=== PATIENT | female | born 1970 | race Two or more races ===

== ENCOUNTER 2018-06-14 10:02 | Emergency (ER) | payer MEDICAID ==
[~2018-06-14] VITALS: Ht 149.9 cm; Wt 74.8 kg
[2018-06-14 10:25] VITALS: BP 116/39
== END 2018-06-14 11:18 | disposition home or self-care (01) ==
LOC: ER 10:11
DX: M79.672 Pain in left foot (principal); M79.671 Pain in right foot; J45.909 Unspecified asthma, uncomplicated; Z76.0 Encounter for issue of repeat prescription; Z86.718 Personal history of other venous thrombosis and embolism